=== PATIENT | female | born 1970 | race Caucasian/White ===

== ENCOUNTER 2016-10-06 21:00 | Emergency (ER) | payer BC ==
[2016-10-06] MEDS ORDERED: MORPHINE SULFATE 10 MG/ML INJ IV PRN (22:25)
[2016-10-06] MEDS ORDERED: ONDANSETRON HCL INJ/PF 4 MG/2 ML SDV ONE (22:57)
[2016-10-06 23:07] LABS: ABSOLUTE BASOPHILS # (AUTO) 0.1 10^3/uL (0.0-0.2); ABSOLUTE LYMPHOCYTES (AUTO) 0.8 10^3/uL (0.5-4.7); ABSOLUTE MONOCYTES (AUTO) 0.4 10^3/uL (0.1-1.4); ABSOLUTE NEUT (AUTO) 13.3 10^3/uL (1.7-8.2); BASOPHILS % (AUTO) 0.4 % (0-2); HEMATOCRIT 43.2 % (36.0-47.0); HEMOGLOBIN 14.6 g/dL (12.0-15.5); HGB HCT DIFFERENCE 0.6; LYMPHOCYTES % (AUTO) 5.5 % (13-45); MEAN CORPUSCULAR HEMOGLOBIN 30.2 pg (27.0-33.4); MEAN CORPUSCULAR HGB CONC 33.9 g/dL (32.0-36.0); MEAN CORPUSCULAR VOLUME 89 fl (80-97); MONOCYTES % (AUTO) 2.9 % (3-13); RED BLOOD COUNT 4.85 10^6/uL (3.72-5.28); RED CELL DISTRIBUTION WIDTH 15.4 % (11.5-14.0); SEGMENTED NEUTROPHILS % (AUTO) 91.2 % (42-78); WHITE BLOOD COUNT 14.6 10^3/uL (4.0-10.5)
[2016-10-06 23:21] LABS: ALANINE AMINOTRANSFERASE 35 U/L (9-52); ALBUMIN 4.6 g/dL (3.5-5.0); ALKALINE PHOSPHATASE 68 U/L (38-126); ANION GAP 15 (5-19); ASPARTATE AMINO TRANSFERASE 39 U/L (14-36); BILIRUBIN,DIRECT 0.3 mg/dL (0.0-0.4); BILIRUBIN,TOTAL 0.8 mg/dL (0.2-1.3); BLOOD UREA NITROGEN 25 mg/dL (7-20); CALCIUM 10.2 mg/dL (8.4-10.2); CARBON DIOXIDE 25 mmol/L (22-30); CHLORIDE 99 mmol/L (98-107); CREATININE RESULT 0.67 mg/dL (0.52-1.25); GLUCOSE 102 mg/dL (75-110); LIPASE 91.4 U/L (23-300); POTASSIUM 4.2 mmol/L (3.6-5.0); SODIUM 139.1 mmol/L (137-145); TOTAL PROTEIN 7.8 g/dL (6.3-8.2)
--- NOTE | 2016-10-07 00:07 | ER Document Report ---
ED General - General Chief Complaint: Abdominal Pain Stated Complaint: ABDOMINAL PAIN Time Seen by Provider: 10/06/16 22:23 Notes: Patient is a 46-year-old female without past medical history, does have a history of gastric bypass surgery 10 years ago who presents with acute onset epigastric abdominal pain with associated vomiting. Denies history of similar symptoms in the past. Does describe pain in her epigastrium as a severe, constant, twisting pain. Nothing improves or worsens her pain. She has not seen her primary doctor regarding today's concerns. Denies any diarrhea. No fever, chest pain or shortness of breath. TRAVEL OUTSIDE OF THE [place] IN LAST 30 DAYS: No - Related Data Allergies/Adverse Reactions: No Known Allergies Allergy (Unverified 08/08/15 18:55) Past Medical History - General Information source: Patient - Social History Smoking Status: Never Smoker Frequency of alcohol use: None Drug Abuse: None Lives with: Spouse/Significant other Family History: Reviewed & Not Pertinent - Past Medical History Cardiac Medical History: Denies: Hx Coronary Artery Disease, Hx DVT Renal/ Medical History: Denies: Hx Peritoneal Dialysis Review of Systems - Review of Systems Notes: Constitutional: Negative for fever. HENT: Negative for sore throat. Eyes: Negative for visual changes. Cardiovascular: Negative for chest pain. Respiratory: Negative for shortness of breath. Gastrointestinal: Positive for abdominal pain and vomiting Genitourinary: Negative for dysuria. Musculoskeletal: Negative for back pain. Skin: Negative for rash. Neurological: Negative for headaches, weakness or numbness. 10 point ROS negative except as marked above and in HPI. Physical Exam - Vital signs Vitals: Temp Pulse Resp BP Pulse Ox 98.4 F 76 20 127/80 H 100 10/07/16 00:00 10/07/16 00:00 10/07/16 00:00 10/07/16 00:00 10/07/16 00:00 Interpretation: Normal Notes: PHYSICAL EXAMINATION: GENERAL: Appears mildly uncomfortable but in no acute distress. HEAD: Atraumatic, normocephalic. EYES: Pupils equal round and reactive to light, extraocular movements intact, sclera anicteric, conjunctiva are normal. ENT: nares patent, oropharynx clear without exudates. Moist mucous membranes. NECK: Normal range of motion, supple without lymphadenopathy LUNGS: Breath sounds clear to auscultation bilaterally and equal. No wheezes rales or rhonchi. HEART: Regular rate and rhythm without murmurs ABDOMEN: Soft, epigastric abdominal tenderness on palpation, normoactive bowel sounds. No guarding, no rebound. No masses appreciated. EXTREMITIES: Normal range of motion, no pitting or edema. No cyanosis. NEUROLOGICAL: No focal neurological deficits. Moves all extremities spontaneously and on command. PSYCH: Normal mood, normal affect. SKIN: Warm, Dry, normal turgor, no rashes or lesions noted. Course - Re-evaluation Re-evalutation: 10/07/16 00:05 Patient presents with acute onset of epigastric abdominal pain with associated vomiting. She continues to be focally tender in the epigastrium. Bedside ultrasound shows mildly thickened gallbladder wall without pericholecystic. She has no sonographic Moss's sign the bedside. Primary concern would be a closed loop bowel obstruction setting of her gastric bypass surgery. The remainder of the labs show mild leukocytosis. Otherwise unremarkable. She has no chest or shortness of breath and a single troponin has been obtained and is negative. 10/07/16 01:15 CT scan the abdomen and pelvis demonstrates a ileus of the ileum without evidence of a closed loop obstruction. Pain remains controlled at this time. Vitals within normal limits. Repeat abdominal exam with minimal to no tenderness in epigastrium. By mouth challenge as patient prefers to be managed as an outpatient. If you tolerate fluids will plan for discharge home with return precautions and follow-up recommendations. 10/07/16 02:44 She has tolerated fluids without difficulty.At this time will discharge with return precautions and follow-up recommendations. Verbal discharge instructions given a the bedside and opportunity for questions given. Medication warnings reviewed. Patient is in agreement with this plan and has verbalized understanding of return precautions and the need for primary care follow-up in the next 24-72 hours. - Vital Signs Vital signs: Temp Pulse Resp BP Pulse Ox 97.7 F 58 L 20 121/69 100 10/07/16 02:03 10/07/16 02:03 10/07/16 02:03 10/07/16 02:03 10/07/16 02:03 - Laboratory Result Diagrams: 10/06/16 22:44 10/06/16 22:44 Laboratory results interpreted by me: 10/06/16 10/06/16 22:44 22:44 WBC 14.6 H RDW 15.4 H Seg Neutrophils % 91.2 H Lymphocytes % 5.5 L Monocytes % 2.9 L Absolute Neutrophils 13.3 H BUN 25 H AST 39 H - Diagnostic Test Radiology reviewed: Reports reviewed Discharge - Discharge Clinical Impression: Ileus Condition: Good Disposition: HOME, SELF-CARE Additional Instructions: You were seen today for abdominal pain and vomiting. Your symptoms based on history and CT scan are consistent with an ileus which is a functional form of a bowel obstruction. It is very important that you stick to clear liquids for the next 24-48 hours. Do not start foods until you are no longer having pain. For your pain: Take Tylenol 1000 mg every 6 hours. You can use the oral morphine tablets that you were sent home with for severe pain that is not controlled by Tylenol. Take the Zofran tablets as needed for nausea. Please return to the emergency department immediately if you develop persistent vomiting, worsening pain, fever greater than 101F, or any other symptoms that are worrisome to you. Please follow-up with your primary care doctor in the next 24-48 hours. Prescriptions: Morphine Sulfate [Morphine Ir 15 mg Tablet] 15 mg PO Q4HP PRN #12 tablet PRN Reason: Ondansetron [Zofran Odt 4 mg Tablet] 1 - 2 tab PO Q4H PRN #15 tab.rapdis PRN Reason: For Nausea/Vomiting Forms: Return to Work
[2016-10-07] MEDS ORDERED: ONDANSETRON ODT 4 MG TAB (6 TAB/DSPK) PO PRN (01:27)
[2016-10-07] MEDS ORDERED: HYDROCODONE/ACETAMINOPHEN 5-325 MG 6 TAB/DSPK PO PRN (01:54)
[2016-10-07 02:39] VITALS: BP 121/69
== END 2016-10-07 02:03 | disposition home or self-care (01) ==
LOC: ER 21:00
DX: K56.7 Ileus, unspecified (principal); R10.13 Epigastric pain; R11.10 Vomiting, unspecified; Z98.84 Bariatric surgery status; D72.829 Elevated white blood cell count, unspecified
CPT/HCPCS: 99284; 96374; 96375; 36415; 84702; 83690; 85025; 80053; 84484; 74177; J2270; J2405

== ENCOUNTER 2016-10-14 01:57 | Emergency (ER) | payer BC ==
[2016-10-14] MEDS ORDERED: KETOROLAC TROMETHAMINE 60 MG/2 ML SDV IM ONE (04:38)
--- NOTE | 2016-10-14 04:50 | ER Document Report ---
ED GI/ - General Chief Complaint: Pelvic Pain Stated Complaint: PELVIC PAIN Time Seen by Provider: 10/14/16 04:24 Notes: Patient is a 46-year-old female who comes emergency department for chief complaint of pain in her lower abdomen and mainly right lower pelvic region, symptoms started several hours ago, symptoms of pain very sharp and made her double over with some nausea, she states symptoms have now completely resolved. She states she has had this many times in the past, has a history of ovarian cysts, uterine ablation, and was told because of her frequent painful menstrual cycles that she should have a hysterectomy. Patient is scheduled to see [employer]ELOP[employer] SCI[employer] to have this arranged. Patient denies vomiting, fever, dysuria, vaginal bleeding or discharge. TRAVEL OUTSIDE OF THE [place] IN LAST 30 DAYS: No - Related Data Allergies/Adverse Reactions: Penicillins Allergy (Verified 10/14/16 02:05) Past Medical History - General Information source: Patient - Social History Smoking Status: Never Smoker Frequency of alcohol use: None Drug Abuse: None Lives with: Family Family History: Reviewed & Not Pertinent Patient has suicidal ideation: No Patient has homicidal ideation: No - Past Medical History Cardiac Medical History: Denies: Hx Coronary Artery Disease, Hx DVT Renal/ Medical History: Reports: Hx Ovarian Cysts. Denies: Hx Peritoneal Dialysis Past Surgical History: Reports: Hx Abdominal Surgery - gastric bypass - Immunizations Hx Diphtheria, Pertussis, Tetanus Vaccination: No Review of Systems - Review of Systems Constitutional: No symptoms reported EENT: No symptoms reported Cardiovascular: No symptoms reported Respiratory: No symptoms reported Gastrointestinal: See HPI Genitourinary: See HPI Female Genitourinary: See HPI Musculoskeletal: No symptoms reported Skin: No symptoms reported Hematologic/Lymphatic: No symptoms reported Neurological/Psychological: No symptoms reported Physical Exam - Vital signs Vitals: Temp Pulse Resp BP Pulse Ox 98 F 90 20 116/75 100 10/14/16 02:00 10/14/16 02:00 10/14/16 02:00 10/14/16 02:00 10/14/16 02:00 Interpretation: Normal - General General appearance: Appears well In distress: None - HEENT Head: Normocephalic, Atraumatic Eyes: Normal Pupils: PERRL - Respiratory Respiratory status: No respiratory distress Chest status: Nontender Breath sounds: Normal. No: Decreased air movement, Wheezing Chest palpation: Normal - Cardiovascular Rhythm: Regular. No: Tachycardia Heart sounds: Normal auscultation, S1 appreciated, S2 appreciated Murmur: No - Abdominal Inspection: Normal Distension: No distension Bowel sounds: Normal Tenderness: Nontender. No: Tender, Guarding Organomegaly: No organomegaly - Back Back: Normal, Nontender. No: CVA tenderness - Extremities General upper extremity: Normal inspection, Nontender, Normal color, Normal ROM , Normal temperature General lower extremity: Normal inspection, Nontender, Normal color, Normal ROM , Normal temperature, Normal weight bearing. No: Miya's sign - Neurological Neuro grossly intact: Yes Cognition: Normal Orientation: AAOx4 [place] Coma Scale Eye Opening: Spontaneous [place] Coma Scale Verbal: Oriented [place] Coma Scale Motor: Obeys Commands [place] Coma Scale Total: 15 Speech: Normal Motor strength normal: LUE, RUE, LLE, RLE Sensory: Normal - Psychological Associated symptoms: Normal affect, Normal mood - Skin Skin Temperature: Warm Skin Moisture: Dry Skin Color: Normal Course - Re-evaluation Re-evalutation: Patient currently asymptomatic, states that during her menstrual cycle this is common although sometimes very painful, she requests medication but declined management because of being asymptomatic at this point. Physical exam is completely unremarkable. I did provide patient with some medication, patient is asking for Toradol in addition to this, she was given a shot and a very few to take at home, patient states she has taken it before with good success, caution given because of gastric bypass surgery and instructions given for taking these and not to take them if she does not need them. 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 - Vital Signs Vital signs: Temp Pulse Resp BP Pulse Ox 98.0 F 84 16 120/74 99 10/14/16 05:05 10/14/16 05:05 10/14/16 05:05 10/14/16 05:05 10/14/16 05:05 Discharge - Discharge Clinical Impression: Lower abdominal pain Condition: Stable Disposition: HOME, SELF-CARE Additional Instructions: Take the prescribed medication if needed. If you take the toradol, take with food and also take antacid medication to avoid complication. Follow up with OBGYN for management. Return to the ED for any concerning symptoms. Prescriptions: Ketorolac Tromethamine [Toradol 10 mg Tablet] 10 mg PO Q8HP PRN #8 tablet PRN Reason: Oxycodone HCl/Acetaminophen [Percocet 5-325 mg Tablet] 1 - 2 tab PO Q4H PRN #10 tablet PRN Reason:
[2016-10-14 05:07] VITALS: BP 120/74
== END 2016-10-14 05:05 | disposition home or self-care (01) ==
LOC: ER 01:57
DX: R10.2 Pelvic and perineal pain (principal); R11.0 Nausea; Z87.42 Personal history of other diseases of the female genital tract; Z98.890 Other specified postprocedural states; Z88.0 Allergy status to penicillin; Z98.84 Bariatric surgery status
CPT/HCPCS: 99283; 96372; J1885

== ENCOUNTER 2017-01-05 23:16 | Emergency (ER) | payer BC ==
--- NOTE | 2017-01-05 23:40 | ER Document Report ---
ED General - General Chief Complaint: Head Injury Stated Complaint: HEAD INJURY Time Seen by Provider: 01/05/17 23:25 TRAVEL OUTSIDE OF THE [place] IN LAST 30 DAYS: No - HPI Patient complains to provider of: Head injury Notes: Patient coming in for evaluation of head injury patient was walking downstairs when she fell down approximately 3 no loss consciousness of the back of her head with obvious laceration actively bleeding at this time. States no loss of consciousness. Patient moving all 4 extremities. Denies any history of blood thinning medications denies fevers chills nausea vomiting diarrhea denies any excessive alcohol drinking tonight. - Related Data Allergies/Adverse Reactions: Penicillins Allergy (Verified 10/14/16 02:05) Past Medical History - Social History Smoking Status: Unknown if Ever Smoked Family History: Reviewed & Not Pertinent - Past Medical History Cardiac Medical History: Denies: Hx Coronary Artery Disease, Hx DVT Renal/ Medical History: Reports: Hx Ovarian Cysts. Denies: Hx Peritoneal Dialysis Past Surgical History: Reports: Hx Abdominal Surgery - gastric bypass - Immunizations Hx Diphtheria, Pertussis, Tetanus Vaccination: No Review of Systems - Review of Systems Constitutional: Other - Head injury EENT: No symptoms reported Cardiovascular: No symptoms reported Respiratory: No symptoms reported Gastrointestinal: No symptoms reported Genitourinary: No symptoms reported Female Genitourinary: No symptoms reported Musculoskeletal: No symptoms reported Skin: No symptoms reported Hematologic/Lymphatic: No symptoms reported Neurological/Psychological: No symptoms reported Physical Exam - Vital signs Interpretation: Normal - General General appearance: Appears well, Alert - HEENT Head: Normocephalic, Other - Laceration to the occipital region. No: Atraumatic Eyes: Normal Pupils: PERRL - Respiratory Respiratory status: No respiratory distress Chest status: Nontender Breath sounds: Normal Chest palpation: Normal - Cardiovascular Rhythm: Regular Heart sounds: Normal auscultation Murmur: No - Abdominal Inspection: Normal Distension: No distension Bowel sounds: Normal Tenderness: Nontender Organomegaly: No organomegaly - Back Back: Normal, Nontender - Extremities General upper extremity: Normal inspection, Nontender, Normal color, Normal ROM , Normal temperature General lower extremity: Normal inspection, Nontender, Normal color, Normal ROM , Normal temperature, Normal weight bearing. No: Miya's sign - Neurological Neuro grossly intact: Yes Cognition: Normal Orientation: AAOx4 [place] Coma Scale Eye Opening: Spontaneous [place] Coma Scale Verbal: Oriented [place] Coma Scale Motor: Obeys Commands [place] Coma Scale Total: 15 Speech: Normal Motor strength normal: LUE, RUE, LLE, RLE Sensory: Normal - Psychological Associated symptoms: Normal affect, Normal mood - Skin Skin Temperature: Warm Skin Moisture: Dry Skin Color: Normal
[2017-01-05] MEDS ORDERED: LIDOCAINE 1%/EPINEPHRINE INJ 20 ML VIAL INJ ONE (23:51)
[2017-01-05] MEDS ORDERED: LIDOCAINE 1% INJ-PF (10 MG/ML) 30 ML SDV INJ ONE (23:52)
--- NOTE | 2017-01-06 00:01 | RADIOLOGY REPORT (SQ) ---
EXAM DESCRIPTION: CT HEAD WITHOUT COMPLETED DATE/TIME: 01/05/2017 11:37 pm REASON FOR STUDY: head trauma COMPARISON: None. TECHNIQUE: Axial images acquired through the brain without intravenous contrast. Images reviewed wi th bone, brain and subdural windows. Images stored on PACS. All CT scanners at this facility use dose modulation, iterative reconstruction, and/or weight based d osing when appropriate to reduce radiation dose to as low as reasonably achievable (ALARA). [facility]: Dose Right [facility]: CareDose [facility]: Dose Right [facility]: Teradose 4D [facility]: Smart Black coin RADIATION DOSE: Up-to-date CT equipment and radiation dose reduction techniques were employed. CTDIv ol: 64.6 mGy. DLP: 1163 mGy-cm. mGy. LIMITATIONS: None. FINDINGS: VENTRICLES: Normal size and contour. CEREBRUM: No masses. No hemorrhage. No midline shift. Normal durand/white matter differentiation. N o evidence for acute infarction. CEREBELLUM: No masses. No hemorrhage. No alteration of density. No evidence for acute infarction. EXTRAAXIAL SPACES: No fluid collections. No masses. ORBITS AND GLOBE: No intra- or extraconal masses. Normal contour of globe without masses. CALVARIUM: No fracture. PARANASAL SINUSES: No fluid or mucosal thickening. SOFT TISSUES: Left parietal subgaleal hematoma. OTHER: No other significant finding. IMPRESSION: No intracranial hemorrhage. TECHNICAL DOCUMENTATION: JOB ID: [id number] Quality ID # [id number]: Final reports with documentation of one or more dose reduction techniques (e.g., Au tomated exposure control, adjustment of the mA and/or kV according to patient size, use of iterative reconstruction technique) 2010 [employer]- All Rights Reserved
[2017-01-06] MEDS: HYDROCODONE/ACETAMINOPHEN 5-325 MG 6 TAB/DSPK PO PRN ×2 (01:57→02:01)
[2017-01-06 02:37] VITALS: BP 110/72
== END 2017-01-06 02:25 | disposition home or self-care (01) ==
LOC: ER 23:16
PROC: 0HQ0XZZ Repair Scalp Skin, External Approach (ICD-10-PCS; principal; 2017-01-05)
DX: S01.01XA Laceration without foreign body of scalp, initial encounter (principal); W10.9XXA Fall (on) (from) unspecified stairs and steps, initial encounter; Z88.0 Allergy status to penicillin
CPT/HCPCS: 70450; 99283

== ENCOUNTER 2017-01-12 11:30 | Emergency (ER) | payer BC ==
[2017-01-12 11:34] VITALS: BP 134/83
--- NOTE | 2017-01-12 11:52 | ER Document Report ---
ED Suture/Wound Recheck - General Chief Complaint: Suture Removal Stated Complaint: STAPLE REMOVAL Time Seen by Provider: 01/12/17 11:45 TRAVEL OUTSIDE OF THE [place] IN LAST 30 DAYS: No - HPI Treated in ED (days ago): 7 Previous ED treatment: Laceration repair Quality of pain: No pain Context: Injury Symptoms since procedure: No complaints Exacerbated by: Denies Relieved by: Denies - Related Data Allergies/Adverse Reactions: Penicillins Allergy (Verified 01/12/17 11:34) Past Medical History - General Information source: Patient - Social History Smoking Status: Never Smoker Chew tobacco use (# tins/day): No Frequency of alcohol use: None Drug Abuse: None Lives with: Family Family History: Reviewed & Not Pertinent - Past Medical History Cardiac Medical History: Denies: Hx Coronary Artery Disease, Hx DVT Renal/ Medical History: Reports: Hx Ovarian Cysts. Denies: Hx Peritoneal Dialysis Past Surgical History: Reports: Hx Abdominal Surgery - gastric bypass, Hx Tubal Ligation - Immunizations Hx Diphtheria, Pertussis, Tetanus Vaccination: No Review of Systems - Review of Systems Constitutional: No symptoms reported EENT: No symptoms reported Cardiovascular: No symptoms reported Respiratory: No symptoms reported Gastrointestinal: No symptoms reported Genitourinary: No symptoms reported Female Genitourinary: No symptoms reported Musculoskeletal: No symptoms reported Skin: No symptoms reported Hematologic/Lymphatic: No symptoms reported Neurological/Psychological: No symptoms reported Physical Exam - Vital signs Vitals: Temp Pulse Resp BP Pulse Ox 98.7 F 91 18 134/83 H 97 01/12/17 11:32 01/12/17 11:32 01/12/17 11:32 01/12/17 11:32 01/12/17 11:32 Interpretation: Normal - General General appearance: Appears well, Alert - HEENT Head: Normocephalic, Atraumatic Eyes: Normal Pupils: PERRL - Respiratory Respiratory status: No respiratory distress Chest status: Nontender Breath sounds: Normal Chest palpation: Normal - Cardiovascular Rhythm: Regular Heart sounds: Normal auscultation Murmur: No - Abdominal Inspection: Normal Distension: No distension Bowel sounds: Normal Tenderness: Nontender Organomegaly: No organomegaly - Back Back: Normal, Nontender - Extremities General upper extremity: Normal inspection, Nontender, Normal color, Normal ROM , Normal temperature General lower extremity: Normal inspection, Nontender, Normal color, Normal ROM , Normal temperature, Normal weight bearing. No: Miya's sign - Neurological Neuro grossly intact: Yes Cognition: Normal Orientation: AAOx4 [place] Coma Scale Eye Opening: Spontaneous [place] Coma Scale Verbal: Oriented [place] Coma Scale Motor: Obeys Commands [place] Coma Scale Total: 15 Speech: Normal Motor strength normal: LUE, RUE, LLE, RLE Sensory: Normal - Psychological Associated symptoms: Normal affect, Normal mood - Skin Skin Temperature: Warm - #3 interrupted sutures and #4 stacie intact. edges well approximted. no s/s infection Skin Moisture: Dry Skin Color: Normal Course - Re-evaluation Re-evalutation: 01/12/17 11:53 stacie and sutures removed without difficulty. pt tolerated well - Vital Signs Vital signs: Temp Pulse Resp BP Pulse Ox 98.7 F 91 18 134/83 H 97 01/12/17 11:32 01/12/17 11:32 01/12/17 11:32 01/12/17 11:32 01/12/17 11:32 Discharge - Discharge Clinical Impression: Visit for suture removal Condition: Stable Instructions: Suture Removal, Staple Removal ([facility]) Additional Instructions: keep area clean and dry follow up with your primary care as needed return to ER for any concerns
== END 2017-01-12 12:01 | disposition home or self-care (01) ==
LOC: ER 11:30
DX: S01.91XD Laceration without foreign body of unspecified part of head, subsequent encounter (principal)

== ENCOUNTER 2017-07-24 06:29 | Day surgery (SDC) | payer BC ==
[2017-07-16 13:19] LABS: HEMATOCRIT 34.4 % (36.0-47.0); MEAN CORPUSCULAR HEMOGLOBIN 25.1 pg (27.0-33.4); MEAN CORPUSCULAR HGB CONC 32.1 g/dL (32.0-36.0); MEAN CORPUSCULAR VOLUME 78 fl (80-97); PLATELET COUNT 321 10^3/uL (150-450); RED CELL DISTRIBUTION WIDTH 16.8 % (11.5-14.0); WHITE BLOOD COUNT 5.1 10^3/uL (4.0-10.5)
[2017-07-16 13:25] LABS: APPEARANCE,URINE CLOUDY; BILIRUBIN,URINE NEGATIVE (NEGATIVE); COLOR,URINE YELLOW; GLUCOSE, URINE NEGATIVE (NEGATIVE); KETONES,URINE NEGATIVE (NEGATIVE); LEUKOCYTE ESTERASE,URINE NEGATIVE (NEGATIVE); NITRITE,URINE NEGATIVE (NEGATIVE); PROTEIN,URINE NEGATIVE (NEGATIVE); URINE SPECIFIC GRAVITY 1.017; UROBILINOGEN,URINE NEGATIVE mg/dL (<2.0)
[2017-07-16 13:37] LABS: ALANINE AMINOTRANSFERASE 29 U/L (9-52); ALBUMIN 4.3 g/dL (3.5-5.0); ALKALINE PHOSPHATASE 45 U/L (38-126); ANION GAP 10 (5-19); ASPARTATE AMINO TRANSFERASE 38 U/L (14-36); BILIRUBIN,DIRECT 0.1 mg/dL (0.0-0.4); BILIRUBIN,TOTAL 0.3 mg/dL (0.2-1.3); BLOOD UREA NITROGEN 13 mg/dL (7-20); CALCIUM 9.6 mg/dL (8.4-10.2); CARBON DIOXIDE 27 mmol/L (22-30); CHLORIDE 102 mmol/L (98-107); GLUCOSE 131 mg/dL (75-110); SODIUM 139.3 mmol/L (137-145); TOTAL PROTEIN 6.6 g/dL (6.3-8.2)
[~2017-07-24 06:29] MED LIST: CLINDAMYCIN 900 MG/D5W RTU 50 ML IV PRN; GENTAMICIN SULFATE 120 MG in DEXTROSE 5%-WATER 100 ML IV PRN; GENTAMICIN SULFATE IV PRN; LACTATED RINGERS 1000 ML IV PRN; LIDOCAINE 0.5% INJ-PF (5 MG/ML) 50 ML SDV SUBCUT PRN; NORMAL SALINE IV PRN
[2017-07-24] MEDS ORDERED: HYDROMORPHONE HCL INJ/PF 2 MG/ML AMPULE ONE (06:54)
[2017-07-24] MEDS ORDERED: MIDAZOLAM 2 MG/2 ML INJ ONE (06:54)
[2017-07-24] MEDS ORDERED: FENTANYL CITRATE INJ/PF 250 MCG/5 ML AMPULE ONE (06:54)
[2017-07-24] MEDS ORDERED: PROPOFOL INJ 200 MG/20 ML VIAL IV ONE (06:55)
[2017-07-24] MEDS ORDERED: ACETAMINOPHEN 100 ML IV ONE (06:55)
[2017-07-24] MEDS ORDERED: DEXMEDETOMIDINE INJ 80 MCG/20 ML VIAL IV ONE (06:55)
[2017-07-24] MEDS ORDERED: EPHEDRINE SULFATE INJ 50 MG/1 ML AMPULE ONE (08:46)
[2017-07-24] MEDS ORDERED: MORPHINE SULFATE 10 MG/ML INJ IV PRN (11:07)
[2017-07-24] MEDS ORDERED: DIPHENHYDRAMINE HCL 50 MG/ML VIAL IV PRN (11:07)
[2017-07-24] MEDS ORDERED: PROMETHAZINE HCL INJ 25 MG/1 ML VIAL IV PRN ×2 (11:07)
[2017-07-24] MEDS ORDERED: MEPERIDINE HCL/PF INJ 25 MG/1 ML DISP.SYRIN IV PRN (11:07)
[2017-07-24] MEDS ORDERED: ONDANSETRON HCL INJ/PF 4 MG/2 ML SDV IV PRN (11:07)
[2017-07-24] MEDS ORDERED: FENTANYL CITRATE INJ/PF 100 MCG/2 ML AMPUL IV PRN ×3 (11:07)
[2017-07-24] MEDS: FENTANYL CITRATE INJ/PF 100 MCG/2 ML AMPUL ONE ×2 (12:15→12:20)
--- NOTE | 2017-07-24 12:34 | OPERATIVE REPORT E ---
Operative Report NAME: JUDSON ANDREW : 1970 AGE: 46Y DATE OF SURGERY: 07/24/2017 ROOM: PREOPERATIVE DIAGNOSIS: 1. Abnormal uterine bleeding. 2. Chronic pelvic pain. POSTOPERATIVE DIAGNOSIS: 1. Abnormal uterine bleeding. 2. Chronic pelvic pain. 3. Leiomyoma. OPERATION: Robotic-assisted total laparoscopic hysterectomy with bilateral salpingo-oophorectomy. SURGEON: FELIX COOPER M.D. CHARACTER ACTRESS: Valorie Adams, Generation Engineer Fish Roe Technician and Amanda Chen, Generation Engineer Fish Roe Technician Student. ANESTHESIA: Dr. Mayes with General. FINDINGS: A 12 week uterus with small intramural fibroids noted, normal ovaries and fallopian tubes with Falope rings on them. COMPLICATIONS: None. ESTIMATED BLOOD LOSS: 100 mL. TISSUE REMOVED OR ALTERED: Uterus, cervix, tubes, and ovaries. PROCEDURE: The patient was taken to the operating room, prepared and draped in normal sterile fashion in the dorsal lithotomy position. Under sterile conditions, a Gonzalez catheter was placed to gravity and a sterile speculum was placed into the vagina. The cervix was prepped with Betadine and grasped on the anterior lip with the single-tooth tenaculum. The cervix was then transected with the uterine sound and sounded to 12 cm. The cervix was then dilated to accommodate a large VCare which was placed without difficulty. Gloves were changed and attention was turned to the upper portion of the case. A skin incision was made approximately 2 cm above the umbilicus due to the patient's short waisted body habitus and this was carried through to the underlying layer of fascia with the same scalpel. The fascia was grasped with 2 Shamika's and was transected with Guevara scissors. The peritoneum was then also similarly transected, careful to avoid any bowel underneath. The incision was extended using the Guevara's and the surgeon's fingers as the guard. The GelPort was then placed in a normal fashion without difficulty and the applied medical morcellation bag was placed in the right pericolic gutter. The abdomen was then insufflated with approximately 2 L of CO2 gas using the AirSeal. The camera was then introduced and under direct visualization, 2 mm ports were placed approximately 10 cm on either side of the umbilicus. The patient was placed in steep Trendelenburg and the bowel was swept away with the blunt probe. The robot was then docked without difficulty and the instruments were placed in a normal fashion. I then sat at the console where beginning with the left adnexa, the left round ligament was transected using the vessel sealer and the broad ligament was opened connecting the IP ligament to the round ligament, again transecting this with the vessel sealer. Once the ovary was freed and held away by the offset assistant press operator, rest of the uterine artery was skeletonized and transected using the vessel sealer until we reached the level of the internal cervical os. The bladder flap was then started using monopolar scissors and blunt dissection. We then freed the right adnexa in a similar fashion and again skeletonized and transected the right uterine arteries down to the level of the internal cervical os and completed the bladder flap with the monopolar scissors and blunt dissection. The rest of the uterine artery was transected to the level of the external cervical os where the VCare cup could be located through the mucosa. Once this was completely coagulated, a colpotomy was begun on the posterior side using the monopolar scissors and carried around circumferentially until the specimen was completely free. The specimen was then placed into the right pericolic gutter with the applied medical morcellation bag. The instruments were changed and a V-Loc needle was introduced by the offset assistant press operator and this was used to close the vaginal cuff in a normal fashion without difficulty and hemostasis was maintained throughout. The cavity was then copiously suctioned, irrigated and found to be hemostatic. The remaining needle was then removed by my offset assistant press operator and I retrieved the specimen and the applied medical morcellation bag, opened the bag and placed the specimen inside. I then re-gowned and undocked the robot. We then pulled the morcellation bag to the surface and placed the normal applied medical guards in place for patient protection and then began morcellation of the specimen using a C-cut manner until the specimen was completely freed through the incision. The guard and applied medical bags were then removed and the GelPort was then completely removed. The fascia at the upper incision was closed with 0 Vicryl. The subcutaneous layer at this incision was also closed with a plain catgut and the skin was closed at all 3 incisions with 4-0 Vicryl. The patient tolerated the procedure well. Sponge, lap and needle counts were correct x2 and the patient was taken to recovery in stable condition. DICTATING PHYSICIAN: FELIX COOPER M.D. [id number] PHY#: [id number] ID: [id number] JOB#: [id number] ACCT: [id number] cc:FELIX COOPER M.D. >
[2017-07-24] MEDS ORDERED: RINGERS SOLUTION,LACTATED 1,000 ML IV PRN (12:37)
[2017-07-24] MEDS ORDERED: HYDROMORPHONE HCL INJ/PF 2 MG/ML AMPULE IV PRN (12:42)
[2017-07-24] MEDS ORDERED: ROCURONIUM BROMIDE INJ 50 MG/5 ML VIAL IV ONE (15:33)
[2017-07-24] MEDS ORDERED: SUCCINYLCHOLINE CHLORIDE INJ 200 MG/10 ML VIAL ONE (15:33)
[2017-07-24] MEDS ORDERED: LIDOCAINE 2% INJ-PF (20 MG/ML) 2 ML AMPUL ONE (15:33)
[2017-07-24] MEDS ORDERED: NEOSTIGMINE METHYLSULFATE 10 MG/10 ML VIAL ONE (15:33)
[2017-07-24] MEDS ORDERED: KETOROLAC TROMETHAMINE 60 MG/2 ML SDV ONE (15:33)
[2017-07-24] MEDS ORDERED: GLYCOPYRROLATE INJ 0.4 MG/2 ML VIAL ONE (15:33)
[2017-07-24] MEDS ORDERED: METOCLOPRAMIDE HCL INJ/PF 10 MG/2 ML SDV ONE (15:33)
[2017-07-24] MEDS ORDERED: ONDANSETRON HCL INJ/PF 4 MG/2 ML SDV ONE (15:33)
[2017-07-24] MEDS ORDERED: DEXAMETHASONE SOD PHOSPHATE INJ 4 MG/1 ML VIAL ONE (15:33)
[2017-07-24] MEDS: OXYCODONE-ACETAMINOPHEN 5-325 MG TABLET PO PRN ×2 (15:34→22:43)
[2017-07-24] MEDS ORDERED: LORAZEPAM INJ 2 MG/1 ML VIAL IV ONE (17:00)
[2017-07-24] MEDS: ERYTHROMYCIN 0.5% OPH OINT 1 GM UNIT DOSE OU SCH (17:00)
[2017-07-24] MEDS ORDERED: ACETAMINOPHEN 100 ML IV SCH (17:30)
[2017-07-24] MEDS: KETOROLAC TROMETHAMINE INJ/PF 30 MG/1 ML SDV IV SCH (17:30)
[2017-07-24] MEDS ORDERED: POLYVINYL ALCOHOL 1.4% OPH SOLN 15 ML OS PRN (20:22)
[2017-07-24] MEDS ORDERED: ZOLPIDEM TARTRATE 5 MG TABLET PO PRN (20:28)
[2017-07-24] MEDS ORDERED: POLYMYXIN B SULFATE/TMP OPH SOLN 10 ML ONE (22:43)
[2017-07-25] MEDS: KETOROLAC TROMETHAMINE INJ/PF 30 MG/1 ML SDV IV SCH (03:40)
[2017-07-25 05:35] LABS: HEMATOCRIT 28.5 % (36.0-47.0); HEMOGLOBIN 9.4 g/dL (12.0-15.5); MEAN CORPUSCULAR HEMOGLOBIN 25.4 pg (27.0-33.4); MEAN CORPUSCULAR HGB CONC 33.1 g/dL (32.0-36.0); MEAN CORPUSCULAR VOLUME 77 fl (80-97); PLATELET COUNT 251 10^3/uL (150-450); RED BLOOD COUNT 3.71 10^6/uL (3.72-5.28); RED CELL DISTRIBUTION WIDTH 16.6 % (11.5-14.0); WHITE BLOOD COUNT 11.2 10^3/uL (4.0-10.5)
[2017-07-25] MEDS: OXYCODONE-ACETAMINOPHEN 5-325 MG TABLET PO PRN ×2 (07:26→11:23)
[2017-07-25] MEDS: ERYTHROMYCIN 0.5% OPH OINT 1 GM UNIT DOSE OU SCH (08:58)
[2017-07-25] MEDS ORDERED: CLINDAMYCIN 900 MG/D5W RTU 50 ML IV ONE (09:00)
--- NOTE | 2017-07-25 09:27 | PDOC DISCHARGE SUMMARY ---
General - Admit/Disc Date/PCP Discharge Date: 07/25/17 - Discharge Diagnosis (1) Abnormal uterine and vaginal bleeding, unspecified Is this a current diagnosis for this admission?: Yes (2) Pelvic pain Is this a current diagnosis for this admission?: Yes (3) Leiomyoma of body of uterus Is this a current diagnosis for this admission?: Yes - Additional Information Home Medications: Ascorbate Calcium [Vitamin C] 500 mg PO DAILY 07/16/17 Biotin [Biotin 10 mg Tablet] 1 tab PO DAILY PRN 07/16/17 Cyanocobalamin (Vitamin B-12) [Vitamin B12] 5,000 mcg PO DAILY 07/16/17 Ergocalciferol (Vitamin D2) [Vitamin D] 400 unit PO DAILY 07/16/17 Multivitamin [Multivitamins] 1 each PO DAILY 07/16/17 History of Present Illness History of Present Illness: JUDSON ANDREW is a 46 year old female Hospital Course Hospital Course: underwent RATLH w/ BSO without difficulty. Had issue with panic attack on POD 0 that was resolved with short acting benzo. Had a postoperative sclera abrasion from scratching eye when coming out of anesthesia. Feels better today after erythromycin ointment and artificial tears use. Physical Exam - Physical Exam Vital Signs: Temp Pulse Resp BP Pulse Ox 99.1 F 72 16 91/46 L 98 07/25/17 04:02 07/25/17 04:02 07/25/17 04:02 07/25/17 04:02 07/25/17 04:02 Intake & Output 07/24/17 07/25/17 07/26/17 06:59 06:59 06:59 Intake Total 2150 Output Total 275 800 Balance 1875 -800 Weight 81.65 kg 81.65 kg General appearance: PRESENT: no acute distress, cooperative Eye exam: PRESENT: PERRLA, other - small scratch in left medial sclera. No exudate or signs of infection GI/Abdominal exam: PRESENT: soft, tenderness - appropriate for postoperative period. incisions c/d/intact Result Laboratory Results: 07/25/17 05:02 07/16/17 12:20 07/25/17 05:02 WBC 11.2 H RBC 3.71 L Hgb 9.4 L Hct 28.5 L MCV 77 L MCH 25.4 L MCHC 33.1 RDW 16.6 H Plt Count 251 Plan Discharge Plan: receiving one additional dose of clindamycin due to slightly elevated temp and WBC. Will discharge afterwards to home. Instructed to continue use of ointment and tears as needed for scleral abrasion. Keep follow up in 2 wks Time Spent: Less than 30 Minutes
[2017-07-25] MEDS ORDERED: IBUPROFEN 800 MG TABLET PO PRN (10:00)
[2017-07-25 12:35] VITALS: BP 111/67
== END 2017-07-25 12:30 | disposition home or self-care (01) ==
LOC: OROUT 06:29 → 2N 12:53 → OROUT 07-25 12:30
PROVIDERS: ATTEND Obstetrics & Gynecology
PROC: 0UT24ZZ Resection of Bilateral Ovaries, Percutaneous Endoscopic Approach (ICD-10-PCS; 2017-07-24)
PROC: 0UT74ZZ Resection of Bilateral Fallopian Tubes, Percutaneous Endoscopic Approach (ICD-10-PCS; 2017-07-24)
PROC: 8E0W4CZ Robotic Assisted Procedure of Trunk Region, Percutaneous Endoscopic Approach (ICD-10-PCS; 2017-07-24)
PROC: 0UT94ZZ Resection of Uterus, Percutaneous Endoscopic Approach (ICD-10-PCS; principal; 2017-07-24 08:30)
DX: Z30.2 Encounter for sterilization (principal); G89.29 Other chronic pain; R10.2 Pelvic and perineal pain; N93.9 Abnormal uterine and vaginal bleeding, unspecified; D25.9 Leiomyoma of uterus, unspecified; N83.12 Corpus luteum cyst of left ovary; N83.11 Corpus luteum cyst of right ovary; N73.6 Female pelvic peritoneal adhesions (postinfective); Z88.0 Allergy status to penicillin; Z87.891 Personal history of nicotine dependence
CPT/HCPCS: 58571; S2900; 36415; 80053; 81001; 81025; 840; 85027; 86850; 86900; 86901; 88307; A6240; J0131; J0330; J1100; J1170; J1580; J1885; J2060; J2250; J2405; J2704; J2765; J3010; J3490

== ENCOUNTER → 2019-03-04 | Outpatient (CLI) | payer BC ==
--- NOTE | 2019-03-04 16:52 | XCELERA REPORT ---
[address] [place] [facility] [id number] Lower Extremity Venous Evaluation Procedure: Color flow and duplex imaging of the veins of the right lower extremity as well as the left Common Femoral vein. Right Sided Venous Evaluation A non vascular, complex, oval mass is noted in the muscular compartment, in the upper, posterior calf. Normal vessel filling wall to wall, compression and augmentation as well as Colour flow down to the infrageniculate veins. Left Sided Venous Evaluation The left common femoral vein is fully compressible. Spontaneous and phasic flow is present in the left common femoral vein. Interpretation Summary No duplex evidence of DVT or obstruction in the right lower extremity nor in the left Common Femoral vein. A mass is noted in the muscular compartment of the right calf. This may require further evaluation, perhaps with an MRI or CT scan, depending on the clinical situation. Name: JUDSON ANDREW Age: 48 yrs Gender: Female : 1970 Patient Status: Outpatient Patient Location: Study Date: 03/04/2019 03:14 PM Reason For Study: RLE LOCALIZED SWELLING Ordering Physician: AMARILIS HERNANDEZ Performed By: Lizbeth Pacheco : AMARILIS HERNANDEZ > Diomedes Rosado
== END ==
LOC: SP 15:21
PROVIDERS: ATTEND Orthopaedic Surgery
DX: R22.41 Localized swelling, mass and lump, right lower limb (principal)
CPT/HCPCS: 93971